=== PATIENT | female | born 1985 | race Two or more races ===

== ENCOUNTER 2021-10-15 11:46 | Emergency (ER) | payer MEDICAID, OTHER ==
[~2021-10-15] VITALS: Ht 157.5 cm; Wt 86.2 kg
[2021-10-15 11:53] VITALS: BP 165/110
[2021-10-15] MEDS ORDERED: CEPH500T PO (12:07)
== END 2021-10-15 12:27 | disposition home or self-care (01) ==
LOC: ER 12:19
DX: L60.0 Ingrowing nail (principal); M79.674 Pain in right toe(s)